=== PATIENT | male | born 1955 | race Caucasian/White ===

== ENCOUNTER 2017-05-01 08:01 | Emergency (ER) | payer OTHER, SELFPAY ==
[2017-05-01 08:02] VITALS: BP 125/78; PULSE 89; RESP 24; TEMP 36.8; O2SAT 97; BMI 28.3
--- NOTE | 2017-05-01 08:24 | RAD_ITS ---
STUDY: X-RAY CHEST REASON FOR EXAM: Male, 61 years old. Cough TECHNIQUE: Single AP portable view of the chest. COMPARISON: 11/20/2015. 02/19/2013. FINDINGS: The lungs are clear and hyperexpanded. There is no demonstrated pleural abnormality. Normal size heart. Normal mediastinum and rolan. Normal visualized pulmonary arteries. Normal visualized aortic arch and descending thoracic aorta. Normal visualized thoracic spine. There is degenerative osteoarthritis of the bilateral shoulders. There is no demonstrated abnormality of the visualized soft tissue structures of the upper abdomen. RAD/Chest 1 View (Portable) IMPRESSION: Stable mild hyperinflation. No acute cardiopulmonary disease. No significant interval change. Electronically Signed: Jenna Hernandez MD at 8:38 EDT , Service support ,
--- NOTE | 2017-05-01 08:27 | ED.VISSUMM ---
- ER Visit Summary Date of Service: 05/01/17 Chief Complaint: Flu History of Present Illness: The patient is a 61 M with flulike symptoms. He describes these as nausea, vomiting, and dehydration. He also has a dry cough. He is worried he might be getting dehydrated. He had this for 4 days. It is gradually getting worse. He did have some fevers, but none today. He has a history of high blood pressure, high cholesterol, and COPD. He denies any chest pain or abdominal pain. Denies any urinary symptoms. Physical Examination: Afebrile and vital signs unremarkable. Alert and oriented. No acute distress. Mucous membranes slightly dry. Heart regular. Lungs clear. Abdomen soft and nontender. No distention or masses. Skin appears normal in color. Test Results: We will check labs, chest x-ray, influenza testing. Emergency Department Course and Treatment: Patient had Zofran and fluids while awaiting results. Patient felt better after fluids and Zofran. No further vomiting. No new symptoms. His exam showed a soft and nontender abdomen with no distention, guarding, or rebound. CBC unremarkable except for platelets of 134. Potassium 3.4 and glucose 127. Hepatic panel and lipase normal. Patient continued to deny urinary symptoms. Denied any chest pain or shortness of breath. He did have a dry cough. His chest x-ray was stable with no acute abnormalities. This is likely a viral syndrome. I believe the patient is appropriate for outpatient follow-up. He should return right away for any new or worsening symptoms, otherwise call for follow-up with his doctor tomorrow. Prescription for Zofran. Stay hydrated. Soft diet. Return for new or worsening symptoms. Treatment Plan: As above Disposition: Discharged Impression: 1. Nausea and vomiting This note was generated with [employer] display technologiesation software. It may contain incorrect words, spelling, and punctuation that were not noted in review of the chart prior to signing ED Disposition - Plan for ED Patient: Chief Complaint: Weakness Referrals: Mak Tejada MD [Primary Care Provider] -
[2017-05-01] MEDS: 0.9% Normal Saline 1,000 ML 1000 ML IV (08:28)
[2017-05-01] MEDS: Ondansetron 4 MG/2 ML Vial IV (08:28)
[2017-05-01 08:33] LABS: Absolute Lymphocyte Count 1.07 X10^3/ul (0.83-4.51); Absolute Neutrophil Count 3.7 X10^3/uL (2.0-7.7); Basophil# 0.02 X10^3/uL; Basophil% 0.3 % (0-1); Differential Indicated SCAN CRITERIA MET; Eosinophil# 0.04 X10^3/uL; Eosinophils% 0.6 % (0-5); Hematocrit 45.1 % (40-54); Hemoglobin 14.5 g/dl (13.0-16.5); Lymphocyte # 1.07 X10^3/ul (4.0); Lymphocyte % 16.8 % (19-41); Mean Corp Hgb Conc 32.2 g/gl (32-36); Mean Corpuscular Hgb 28.9 pg (27.0-32.0); Mean Platelet Vol. 11.8 fl (6.2-12.0); Monocyte# 1.53 X10^3/uL; Neutrophil # 3.69 X10^3/uL (2.7-7.7); POSITIVE COUNT NO; POSITIVE DIFFERENTIAL YES; POSITIVE MORPHOLOGY NO; Platelet Count 134 K/mm3 (150-450); RBC Distribution Width CV 14.1 % (11.6-14.6); RBC Distribution Width SD 46.5 fl (35.1-43.9); Red Blood Count 5.01 M/mm3 (4.6-6.2); White Blood Count 6.4 K/mm3 (4.4-11.0)
[2017-05-01 08:46] LABS: ALB/GLOB Ratio 0.8 RATIO (0.9-2.4); AST(SGOT) 15 U/L (15-37); Alanine Aminotransfer ALT/SGPT 17 U/L (16-61); Albumin, Serum 3.3 g/dL (3.2-5.0); Alkaline Phosphatase 97 U/L (45-117); Anion Gap 8 (5-15); BUN 16 mg/dL (7-18); BUN/Creat Ratio 14.2 RATIO (10-20); Calcium,Total 8.2 mg/dL (8.5-10.1); Chloride 102 mmol/L (98-107); Creatinine, Serum 1.13 mg/dL (0.70-1.30); EST Glomerular Filtration Rate 70 mL/min (>60); Est Glom Filt Rate - Afr Amer 84 mL/min (>60); Estimated Creatinine Clearance 65.58 ml/min; Globulin 4.3 g/dL (2.2-4.2); Glucose 127 mg/dL (74-106); Lipase 140 U/L (73-393); Potassium 3.4 mmol/L (3.5-5.1); Protein, Total 7.6 g/dL (6.4-8.2); Sodium Level 137 mmol/L (136-145)
--- NOTE | 2017-05-01 09:03 | ED.DEP ---
ED Disposition - Plan for ED Patient: Chief Complaint: Weakness Instructions: ED Nausea Vomiting Prescriptions: Ondansetron [Zofran Odt] 4 mg PO Q8H PRN PRN #10 tab PRN Reason: Nausea Referrals: Mak Tejada MD [Primary Care Provider] -
[2017-05-01 09:09] VITALS: BP 129/68; PULSE 94; RESP 22; O2SAT 97
--- NOTE | 2017-05-01 09:10 | ED.RN ---
THIS NURSE REVIEWED D/C INSTRUCTIONS WITH PT. PT VERBALIZED UNDERSTANDING OF INSTRUCTIONS. IV D/C. IV CATHETER INTACT. PT TOLERATED WELL. PT DENIES FURTHER NEEDS OR QUESTIONS AT THIS TIME.
== END 2017-05-01 09:11 | disposition home or self-care (01) ==
PROVIDERS: Emergency Provider Emergency Medicine; Family Provider Family Medicine; PCP Family Medicine
DX: R11.2 Nausea with vomiting, unspecified (principal); R05 Cough; J44.9 Chronic obstructive pulmonary disease, unspecified; I10 Essential (primary) hypertension; E78.00 Pure hypercholesterolemia, unspecified; Z79.899 Other long term (current) drug therapy
CPT/HCPCS: 71045; 80053; 83690; 85025; 96361; 96374; 99285; J7030; A4216; J2405

== ENCOUNTER 2017-05-27 15:17 | Emergency (ER) | payer OTHER, SELFPAY ==
[2017-05-27 15:18] VITALS: BP 132/62; PULSE 99; RESP 20; TEMP 37.6; O2SAT 95; BMI 27.1
--- NOTE | 2017-05-27 15:55 | EKG12_ITS ---
Test Reason : DIZZINESS/BACKPAIN Blood Pressure : / mmHG Vent. Rate : 083 BPM Atrial Rate : 083 BPM P-R Int : 178 ms QRS Dur : 084 ms QT Int : 384 ms P-R-T Axes : 038 012 048 degrees QTc Int : 451 ms Normal sinus rhythm Normal ECG Confirmed by ROXANA CRUZ, EMANUEL ([id number]), electronic news gathering editor NINI GOULD ([id number]) on 05/30/2017 2:21:03 PM Referred By: FRANCES/SHA Confirmed By:EMANUEL SCHMIDT MD
--- NOTE | 2017-05-27 15:56 | ED.VISSUMM ---
- ER Visit Summary Date of Service: 05/27/17 Chief Complaint: Lightheaded symptoms History of Present Illness: The patient is a 61 M came from work with transient mid upper back pain at 2 PM while standing at work. States became lightheaded. No syncopal episodes. No chest pains or shortness of breath. No recent nausea or vomiting. Normal stools. No urinary symptoms. No recent illness. States had similar symptoms in the past. Currently denies any back pain or any symptoms. He was sent here for work for evaluation. Denies tobacco history. Physical Examination: General: Alert and oriented ?3, no acute distress HEENT: Normocephalic, atraumatic. Moist mucosa membranes Neck: supple, nontender. Cardiovascular: Regular rate and rhythm, no murmurs Respiratory: Normal breath sounds, symmetric, no distress Abdomen: Soft, nontender, nondistended Extremities: Nontender, no edema, pulses intact ?4 Neuro: no focal neurological deficits. Test Results: EKG: Sinus rate of 83, no ST or T-wave changes. QTc 451. Hemoglobin 12.6. Potassium 3.7. Chest x-ray degenerative back disease. Emergency Department Course and Treatment: Patient transient near syncopal symptoms. Started with upper back pain. That has resolved. EKG normal. Labs normal. Given bolus of fluids. X-ray of chest negative for lung disease. No degenerative disease of the back. Patient does have history of arthritis of the back. Since likely pain induced near syncope from his back pain. No chest pains. He is able to ambulate in the ED with no difficulties. Discussed using Tylenol as needed for pain control. Follow with his PCP for reevaluation. All questions are answered. Treatment Plan: [] Disposition: Discharge Impression: 1. Near syncope 2. Degenerative back disease This note was generated with E[employer]horia [employer]ation software. It may contain incorrect words, spelling, and punctuation that were not noted in review of the chart prior to signing ED Disposition - Plan for ED Patient: Disposition: Against Medical Advice Chief Complaint: Dizziness Diagnosis: Near syncope, Degenerative disc disease, thoracic Referrals: Mak Tejada MD [Primary Care Provider] -
--- NOTE | 2017-05-27 16:00 | RAD_ITS ---
STUDY: X-RAY CHEST REASON FOR EXAM: Male, 61 years old. COPD dizziness TECHNIQUE: PA and lateral views of the chest. COMPARISON: May 01, 2017 chest x-ray FINDINGS: The lungs are clear and expanded. There is no demonstrated pleural abnormality. Normal size heart. Normal mediastinum and rolan. Normal visualized pulmonary arteries. Normal visualized aortic arch and descending thoracic aorta. There are diffuse degenerative changes of the visualized thoracic spine. Normal visualized ribs, clavicles, and shoulders. There is no demonstrated abnormality of the visualized soft tissue structures of the upper abdomen. RAD/Chest PA and Lateral IMPRESSION: Degenerative changes, as described above. No demonstrated acute cardiopulmonary process. Electronically Signed: Elena Mccall MD at 16:20 EDT Tel , Service support ,
[2017-05-27 16:08] LABS: Absolute Neutrophil Count 5.9 X10^3/uL (2.0-7.7); Basophil# 0.01 X10^3/uL; Basophil% 0.1 % (0-1); Eosinophil# 0.11 X10^3/uL; Eosinophils% 1.3 % (0-5); Hematocrit 39.3 % (40-54); Hemoglobin 12.6 g/dl (13.0-16.5); Lymphocyte % 19.4 % (19-41); Mean Corp Hgb Conc 32.1 g/gl (32-36); Mean Corpuscular Hgb 28.5 pg (27.0-32.0); Mean Corpuscular Volume 88.9 fL (80-94); Mean Platelet Vol. 11.7 fl (6.2-12.0); Monocyte% 11.4 % (0-10); Neutrophil # 5.91 X10^3/uL (2.7-7.7); Neutrophil % 67.5 % (47-70); Platelet Count 167 K/mm3 (150-450); RBC Distribution Width CV 14.3 % (11.6-14.6); RBC Distribution Width SD 46.7 fl (35.1-43.9); Red Blood Count 4.42 M/mm3 (4.6-6.2); White Blood Count 8.8 K/mm3 (4.4-11.0)
[2017-05-27 16:20] LABS: Anion Gap 8 (5-15); BUN 23 mg/dL (7-18); BUN/Creat Ratio 18.9 RATIO (10-20); Calcium,Total 7.9 mg/dL (8.5-10.1); Chloride 104 mmol/L (98-107); Creatinine, Serum 1.22 mg/dL (0.70-1.30); EST Glomerular Filtration Rate 64 mL/min (>60); Est Glom Filt Rate - Afr Amer 77 mL/min (>60); Estimated Creatinine Clearance 62.78 ml/min; Glucose 100 mg/dL (74-106); Potassium 3.7 mmol/L (3.5-5.1); Sodium Level 137 mmol/L (136-145)
[2017-05-27 16:24] LABS: POSITIVE COUNT NO; POSITIVE DIFFERENTIAL NO; POSITIVE MORPHOLOGY NO
--- NOTE | 2017-05-28 01:07 | ED.RN ---
see patient down time charting from [id number]
== END 2017-05-27 17:57 | disposition left against medical advice (07) ==
LOC: ED 15:53
PROVIDERS: Emergency Provider Emergency Medicine; Family Provider Family Medicine; PCP Family Medicine
DX: R55 Syncope and collapse (principal); M51.34 Other intervertebral disc degeneration, thoracic region
CPT/HCPCS: 71046; 80048; 85025; 93005; 99281; J7040; A4216

== ENCOUNTER → 2019-08-16 15:45 | Outpatient (CLI) | payer OTHER, SELFPAY ==
[2018-04-13 16:02] VITALS: BMI 27.1
[2019-08-16 17:32] LABS: Hematocrit 42.9 % (40-54); Hemoglobin 13.4 g/dL (13.0-16.5); Mean Corp Hgb Conc 31.2 g/dL (32-36); Mean Corpuscular Hgb 28.5 pg (27.0-32.0); Mean Corpuscular Volume 91.1 fL (80-94); Mean Platelet Vol. 13.4 fl (6.2-12.0); Platelet Count 160 K/mm3 (150-450); RBC Distribution Width CV 14.6 % (11.6-14.6); RBC Distribution Width SD 48.6 fl (35.1-43.9); Red Blood Count 4.71 M/mm3 (4.6-6.2); White Blood Count 10.1 K/mm3 (4.4-11.0)
[2019-08-16 17:46] LABS: AST(SGOT) 17 U/L (15-37); Alanine Aminotransfer ALT/SGPT 23 U/L (16-61); Albumin, Serum 3.9 g/dL (3.2-5.0); Alkaline Phosphatase 99 U/L (45-117); Anion Gap 8 (5-15); BUN 25 mg/dL (7-18); BUN/Creat Ratio 18.4 RATIO (10-20); Chloride 106 mmol/L (98-107); Cholesterol 170 mg/dL (200); Creatinine, Serum 1.36 mg/dL (0.70-1.30); EST Glomerular Filtration Rate 56 mL/min (>60); Est Glom Filt Rate - Afr Amer 68 mL/min (>60); Globulin 3.8 g/dL (2.2-4.2); Glucose 84 mg/dL (74-106); High Density Lipoprotein 39 mg/dL; Potassium 4.3 mmol/L (3.5-5.1); Protein, Total 7.7 g/dL (6.4-8.2); Sodium Level 137 mmol/L (136-145); Triglycerides 106 mg/dL; Very Low Density Lipoprotein 21 mg/dL (5-40)
[2019-08-16 17:59] LABS: Microalbumin,Random Urine 49.6 mg/L (NO RANGE EST.); Microalbumin:Creatinine Ratio 9.6 mg/g CRE (<30 mg/g CRE)
== END ==
PROVIDERS: PCP Family Medicine; Referring Provider Family Medicine; Visit Provider Family Medicine
DX: J44.9 Chronic obstructive pulmonary disease, unspecified (principal); I10 Essential (primary) hypertension; E78.00 Pure hypercholesterolemia, unspecified
CPT/HCPCS: 36415; 80053; 80061; 82043; 82570; 85027

== ENCOUNTER → 2020-06-14 07:00 | Outpatient (CLI) | payer OTHER, SELFPAY ==
[2018-04-13 16:02] VITALS: BMI 27.1
[2020-06-14 08:48] LABS: Absolute Lymphocyte Count 2.54 X10^3/uL (0.83-4.51); Absolute Neutrophil Count 3.2 X10^3/uL (2.0-7.7); Basophil# 0.05 X10^3/uL; Basophil% 0.7 % (0-1); Eosinophil# 0.39 X10^3/uL; Eosinophils% 5.6 % (0-5); Hematocrit 42.8 % (40-54); Hemoglobin 13.2 g/dL (13.0-16.5); Lymphocyte # 2.54 X10^3/ul (0.83-4.51); Lymphocyte % 36.3 % (19-41); Mean Corp Hgb Conc 30.8 g/dL (32-36); Mean Corpuscular Hgb 28.1 pg (27.0-32.0); Mean Corpuscular Volume 91.3 fL (80-94); Mean Platelet Vol. 13.2 fl (6.2-12.0); Monocyte# 0.74 X10^3/uL; Monocyte% 10.6 % (0-10); NRBC Flagged by Analyzer 0 % (0-5); Neutrophil # 3.24 X10^3/uL (2.7-7.7); Neutrophil % 46.2 % (47-70); Platelet Count 138 K/mm3 (150-450); RBC Distribution Width CV 14.3 % (11.6-14.6); RBC Distribution Width SD 47.8 fl (35.1-43.9); Red Blood Count 4.69 M/mm3 (4.6-6.2)
[2020-06-14 09:15] LABS: Microalbumin,Random Urine 6.6 mg/L (NO RANGE EST.); Microalbumin:Creatinine Ratio 7.1 mg/g CRE (<30 mg/g CRE)
[2020-06-14 09:35] LABS: AST(SGOT) 12 U/L (15-37); Alanine Aminotransfer ALT/SGPT 22 U/L (16-61); Albumin, Serum 3.5 g/dL (3.2-5.0); Alkaline Phosphatase 86 U/L (45-117); Anion Gap 5 (5-15); BUN 22 mg/dL (7-18); Calcium,Total 7.7 mg/dL (8.5-10.1); Chloride 106 mmol/L (98-107); Cholesterol 159 mg/dL (200); Creatinine, Serum 0.92 mg/dL (0.70-1.30); EST Glomerular Filtration Rate 88 mL/min (>60); Est Glom Filt Rate - Afr Amer 107 mL/min (>60); Globulin 3.4 g/dL (2.2-4.2); Glucose 87 mg/dL (74-106); High Density Lipoprotein 42 mg/dL; Potassium 4.4 mmol/L (3.5-5.1); Protein, Total 6.9 g/dL (6.4-8.2); Sodium Level 138 mmol/L (136-145); Triglycerides 58 mg/dL; Very Low Density Lipoprotein 12 mg/dL (5-40)
== END ==
PROVIDERS: PCP Family Medicine; Referring Provider Family Medicine; Visit Provider Family Medicine
DX: J44.9 Chronic obstructive pulmonary disease, unspecified (principal); I10 Essential (primary) hypertension; E78.00 Pure hypercholesterolemia, unspecified
CPT/HCPCS: 36415; 80053; 80061; 82043; 82570; 85025

== ENCOUNTER 2021-05-09 07:33 | Outpatient (CLI) | payer OTHER, SELFPAY ==
[2021-05-09 08:28] LABS: Absolute Lymphocyte Count 1.95 X10^3/uL (0.83-4.51); Absolute Neutrophil Count 3.7 X10^3/uL (2.0-7.7); Basophil# 0.05 X10^3/uL; Basophil% 0.8 % (0-1); Eosinophil# 0.33 X10^3/uL; Hematocrit 42.3 % (40-54); Hemoglobin 13.4 g/dL (13.0-16.5); Lymphocyte # 1.95 X10^3/ul (0.83-4.51); Lymphocyte % 29.5 % (19-41); Mean Corp Hgb Conc 31.7 g/dL (32-36); Mean Corpuscular Hgb 28.5 pg (27.0-32.0); Mean Corpuscular Volume 89.8 fL (80-94); Mean Platelet Vol. 12.8 fl (6.2-12.0); Monocyte# 0.58 X10^3/uL; Monocyte% 8.8 % (0-10); NRBC Flagged by Analyzer 0 % (0-5); Neutrophil # 3.67 X10^3/uL (2.7-7.7); Neutrophil % 55.6 % (47-70); Platelet Count 138 K/mm3 (150-450); RBC Distribution Width CV 14.6 % (11.6-14.6); RBC Distribution Width SD 48.2 fl (35.1-43.9); Red Blood Count 4.71 M/mm3 (4.6-6.2); White Blood Count 6.6 K/mm3 (4.4-11.0)
[2021-05-09 08:50] LABS: ALB/GLOB Ratio 0.9 RATIO (0.9-2.4); AST(SGOT) 17 U/L (15-37); Alanine Aminotransfer ALT/SGPT 24 U/L (16-61); Albumin, Serum 3.5 g/dL (3.2-5.0); Alkaline Phosphatase 90 U/L (45-117); Anion Gap 2 (5-15); BUN 16 mg/dL (7-18); BUN/Creat Ratio 17.5 RATIO (10-20); Calcium,Total 8.5 mg/dL (8.5-10.1); Chloride 109 mmol/L (98-107); Creatinine, Serum 0.91 mg/dL (0.70-1.30); EST Glomerular Filtration Rate 88 mL/min (>60); Est Glom Filt Rate - Afr Amer 106 mL/min (>60); Globulin 3.8 g/dL (2.2-4.2); Glucose 103 mg/dL (74-106); Magnesium 1.9 mg/dL (1.6-2.6); Potassium 4.1 mmol/L (3.5-5.1); Protein, Total 7.3 g/dL (6.4-8.2); Sodium Level 141 mmol/L (136-145)
[2021-05-09 09:43] LABS: Calcium, Urine (Random) < 5.0 mg/dL (Not Estab.)
[2021-05-11 08:46] LABS: Vitamin D,25 Hydroxy 19.4 ng/mL
== END 2021-05-09 23:59 | disposition home or self-care (01) ==
PROVIDERS: PCP Family Medicine; Referring Provider Family Medicine; Visit Provider Family Medicine
DX: E83.51 Hypocalcemia (principal); R42 Dizziness and giddiness
CPT/HCPCS: 80053; 82306; 82330; 82340; 83735; 83970; 85025

== ENCOUNTER → 2021-11-14 | Outpatient (CLI) | payer OTHER, SELFPAY ==
[2021-11-14 08:04] LABS: Anion Gap 6 (5-15); BUN 22 mg/dL (7-18); Calcium,Total 8.1 mg/dL (8.5-10.1); Chloride 108 mmol/L (98-107); Cholesterol 149 mg/dL (200); Creatinine, Serum 0.96 mg/dL (0.70-1.30); EST Glomerular Filtration Rate 83 mL/min (>60); Est Glom Filt Rate - Afr Amer 101 mL/min (>60); Glucose 101 mg/dL (74-106); High Density Lipoprotein 42 mg/dL; PSA,Total - Annual Screen 1.89 ng/mL (0.00-4.00); Potassium 4.2 mmol/L (3.5-5.1); Sodium Level 142 mmol/L (136-145); Triglycerides 67 mg/dL; Very Low Density Lipoprotein 13 mg/dL (5-40)
== END | disposition home or self-care (01) ==
LOC: LAB 07:14
PROVIDERS: PCP Family Medicine; Referring Provider Family Medicine; Visit Provider Family Medicine
DX: Z00.00 Encounter for general adult medical examination without abnormal findings (principal); I10 Essential (primary) hypertension; E78.00 Pure hypercholesterolemia, unspecified; Z12.5 Encounter for screening for malignant neoplasm of prostate
CPT/HCPCS: 36415; 80048; 80061; 84153; G0103

== ENCOUNTER → 2022-10-09 | Outpatient (CLI) | payer MEDICARE, SELFPAY ==
[2022-10-09 08:52] LABS: Absolute Lymphocyte Count 2.59 X10^3/uL (0.83-4.51); Basophil# 0.05 X10^3/uL; Basophil% 0.6 % (0-1); Eosinophil# 0.29 X10^3/uL; Eosinophils% 3.3 % (0-5); Hematocrit 44.5 % (40-54); Hemoglobin 14.2 g/dL (13.0-16.5); Lymphocyte # 2.59 X10^3/ul (0.83-4.51); Lymphocyte % 29.9 % (19-41); Mean Corp Hgb Conc 31.9 g/dL (32-36); Mean Corpuscular Hgb 28.9 pg (27.0-32.0); Mean Corpuscular Volume 90.4 fL (80-94); Mean Platelet Vol. 12.6 fl (6.2-12.0); Monocyte# 0.68 X10^3/uL; Monocyte% 7.9 % (0-10); NRBC Flagged by Analyzer 0 % (0-5); Neutrophil % 57.7 % (47-70); Platelet Count 147 K/mm3 (150-450); RBC Distribution Width CV 14.9 % (11.6-14.6); RBC Distribution Width SD 49.5 fl (35.1-43.9); Red Blood Count 4.92 M/mm3 (4.6-6.2); White Blood Count 8.7 K/mm3 (4.4-11.0)
[2022-10-09 09:11] LABS: ALB/GLOB Ratio 1.1 RATIO (0.9-2.4); AST(SGOT) 12 U/L (15-37); Alanine Aminotransfer ALT/SGPT 21 U/L (16-61); Albumin, Serum 3.7 g/dL (3.2-5.0); Alkaline Phosphatase 101 U/L (45-117); Anion Gap 1 (5-15); BUN 18 mg/dL (7-18); BUN/Creat Ratio 18.5 RATIO (10-20); Calcium,Total 8.4 mg/dL (8.5-10.1); Chloride 106 mmol/L (98-107); Creatinine, Serum 0.97 mg/dL (0.70-1.30); EST Glomerular Filtration Rate 82 mL/min (>60); Est Glom Filt Rate - Afr Amer 99 mL/min (>60); Globulin 3.4 g/dL (2.2-4.2); Glucose 98 mg/dL (74-106); Magnesium 2.3 mg/dL (1.6-2.6); Potassium 4.3 mmol/L (3.5-5.1); Protein, Total 7.1 g/dL (6.4-8.2); Sodium Level 136 mmol/L (136-145)
[2022-10-09 09:20] LABS: Microalbumin,Random Urine 20.3 mg/L (NO RANGE EST.)
== END | disposition home or self-care (01) ==
LOC: MTLAB 08:14 → LAB 08:16
PROVIDERS: PCP Family Medicine; Referring Provider Family Medicine; Visit Provider Family Medicine
DX: E83.51 Hypocalcemia (principal); J44.9 Chronic obstructive pulmonary disease, unspecified; I10 Essential (primary) hypertension
CPT/HCPCS: 36415; 80053; 82043; 82570; 83735; 85025

== ENCOUNTER 2023-02-03 18:16 | Emergency (ER) | payer MEDICARE, SELFPAY ==
[2023-02-03 18:16] VITALS: BP 159/78; PULSE 92; RESP 16; TEMP 35.6; O2SAT 98; BMI 30.4
--- OUTSIDE RECORDS SUMMARY | 2023-02-03 20:15 | XMS RPT_ITS | CCD ---
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 Designer Name Role Phone Laura Feliciano Unavailable Unavailable Laura Feliciano Unavailable Unavailable Ronal Pinon Unavailable Unavailable Medications Completed/Discontinued Medications Medication Drug Class(es) Dates Sig (Normalized) Sig (Original) atenolol 50 mg oral tablet (3 sources) beta-Adrenergic Nati Start: 6 take 1 tablet by mouth once daily ATENOLOL 50 MG TABS One tablet by mouth daily ATENOLOL [id number] aPl Brooks MD ergocalciferol 71162 unt oral tablet (3 sources) Provitamin D2 Compound Start: 6 take 1 tablet by mouth every week VITAMIN D (ERGOCALCIFEROL) 89526 UNIT CAPS One tablet by mouth weekly ERGOCALCIFEROL [id number] Tena Rivers RN fluticasone propionate 0.05 mg/actuat metered dose nasal spray (5 sources) Corticosteroid Start: 7 End: 7 FLUTICASONE PROPIONATE 50 MCG/ACT SUSP (0.05mg/inh) 1 spray each nostril once a day FLUTICASONE PROPIONATE [id number] Pal Brooks MD hydroCHLOROthiazide 25 mg / spironolactone 25 mg oral tablet (6 sources) Thiazide Diuretic, Aldosterone Antagonist Start: 6 End: 7 take 1-0.5 tablets by mouth once daily SPIRONOLACTONE-HCT Z 25-25 MG TABS One half to One tablet by mouth daily SPIRONOLACTONE-HCT Z [id number] Tena Rivers RN magnesium oxide 400 mg oral tablet (6 sources) Start: 7 End: 7 take 1 tablet by mouth once daily MAGNESIUM OXIDE 400 MG TABS One tablet by mouth daily MAGNESIUM OXIDE [id number] Pal Brooks MD meclizine hydrochloride 25 mg oral tablet (3 sources) Antiemetic Start: 6 take 1 tablet by mouth three times daily as needed MECLIZINE HCL 25 MG TABS One tablet by mouth three times daily As needed MECLIZINE HCL [id number] Tena Rivers RN montelukast 10 mg oral tablet (5 sources) Leukotriene Receptor Antagonist Start: 6 End: 7 take 1 tablet by mouth once daily MONTELUKAST SODIUM 10 MG TABS One tablet by mouth daily MONTELUKAST SODIUM [id number] Tena Rivers RN TIOTROPIUM BROMIDE-OLODATEROL (3 sources) Anticholinergic, beta2-Adrenergic Agonist Start: 6 STIOLTO RESPIMAT 2.5-2.5 MCG/ACT AERS As directed TIOTROPIUM BROMIDE-OLODATEROL [id number] Tena Rivers RN pravastatin sodium 80 mg oral tablet (3 sources) HMG-CoA Reductase Inhibitor Start: 6 take 1 tablet by mouth once daily PRAVASTATIN SODIUM 80 MG TABS One tablet by mouth daily PRAVASTATIN SODIUM [id number] Tena Rivers RN Problems Active Problems Problem Classification Problem Date Documented Da te Episodic/Chronic Cardiac dysrhythmias (3 sources) Sinus bradycardia; Translations: [Bradycardia, unspecified] Onset: 02-05-2016 02-05-2016 Chronic Chronic obstructive pulmonary disease and bronchiectasis (3 sources) Chronic obstructive lung disease; Translations: [Chronic obstructive pulmonary disease, unspecified] Onset: 02-05-2016 02-05-2016 Chronic Disorders of lipid metabolism (3 sources) Hyperlipidemia; Translations: [Hyperlipidemia, unspecified] Onset: 02-05-2016 02-05-2016 Chronic Essential hypertension (3 sources) Hypertensive disorder; Translations: [Essential (primary) hypertension] Onset: 02-05-2016 02-05-2016 Chronic [place]-; endo-; and myocarditis; cardiomyopathy (3 sources) Cardiomyopathy; Translations: [Cardiomyopathy, unspecified] Onset: 04-15-2016 04-15-2016 Chronic Past or Other Problems Problem Classification Problem Date Documented Da te Episodic/Chronic Conditions associated with dizziness or vertigo (3 sources) Dizziness; Translations: [Dizziness and giddiness] Onset: 02-05-2016 02-05-2016 Episodic Results Test Name Value Interpretation Reference Range Facil ity Vital Signs Date Time Vital Sign Value Performing Clinician Lelo gamez 10-19-2016 12:04-0400 BMI (Body Mass Index) 27.21 kg/m2 Laura Gant [facility] Work Phone: 10-19-2016 12:04-0400 Weight 81.19 kg Laura Feliciano [facility] Work Phone: 04-15-2016 16:37-0500 BMI (Body Mass Index) 28.26 kg/m2 Ronal [employer] [facility] Work Phone: 04-15-2016 16:37-0500 BP Diastolic 64 mm[Hg] Yerbab[employer] DeFinis [facility] Work Phone: 04-15-2016 16:37-0500 BP Systolic 120 mm[Hg] Ronal DeFinis [facility] Work Phone: 04-15-2016 16:37-0500 Height 172.72 cm RIISnet DeFinis [facility] Work Phone: 04-15-2016 16:37-0500 Pulse (Heart Rate) 60 /min [employer]net DeFinis [facility] Work Phone: 04-15-2016 16:37-0500 Respiratory Rate 20 /min Ronal DeFinis [facility] Work Phone: 04-15-2016 16:37-0500 Weight 84.32 kg [employer]net DeFinis [facility] Work Phone: 02-13-2016 15:20-0500 BP Diastolic 72 mm[Hg] RIISnet DeFinis [facility] Work Phone: 02-13-2016 15:20-0500 BP Systolic 130 mm[Hg] [employer] DeFinis [facility] Work Phone: 02-13-2016 15:20-0500 BSA (Body Surface Area) 1.98 m2 Ronal DeFinis [facility] Work Phone: Procedures Date Procedure Procedure Detail Performing Clinician Start: 10-19-2016 End: 10-19-2016 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 Tena Atkinson PA-C Work Phone: Start: 10-19-2016 End: 10-19-2016 Follow Up Appt 6 months Tena drew PA-C Work Phone: Start: 04-15-2016 End: 04-15-2016 Follow Up Appt 6 months Verónica Jarrell Start: 04-15-2016 End: 04-15-2016 JOSÉ Brooks MD Start: 02-13-2016 End: 03-25-2016 Echocardiography Pal Brooks MD Start: 02-13-2016 End: 02-13-2016 Follow Up Appt 6 weeks Pal Brooks MD Start: 02-13-2016 End: 02-13-2016 JOSÉ Brooks MD Plan of Treatment Date Care Activity Detail Author Start: 04-21-2017 End: 04-21-2017 Appointment Appointment [facility] Work Phone: Start: 10-19-2016 End: 10-19-2016 Appointment Appointment [facility] Work Phone: Start: 10-19-2016 End: 10-19-2016 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 [facility] Work Phone: Start: 10-19-2016 End: 10-19-2016 Follow Up Appt 6 months Follow Up Appt 6 months [facility] Work Phone: Start: 08-17-2016 End: 08-17-2016 Appointment Appointment [facility] Work Phone: Start: 04-15-2016 End: 04-15-2016 Follow Up Appt 6 months Follow Up Appt 6 months [facility] Work Phone: Start: 04-15-2016 End: 04-15-2016 MMM MMM [facility] Work Phone: Start: 02-13-2016 End: 02-13-2016 Echocardiography Echocardiogram (complete) [facility] Work Phone: Start: 02-13-2016 End: 02-13-2016 Follow Up Appt 6 weeks Follow Up Appt 6 weeks [facility] Work Phone: Start: 02-13-2016 End: 02-13-2016 MMM MMM [facility] Work Phone: Additional Source Comments FOR RECORDS PERTAINING TO PATIENTS WHO ARE OR HAVE BEEN ENROLLED IN A CHEMICAL DEPENDENCY/SUBSTANCEABUSE PROGRAM, SOME INFORMATION MAY BE OMITTED. This clinical summary was aggregated from multiple sources. Caution should be exercised in using it in the provision of clinical care. This summary normalizes information from multiple sources, and as a consequence, information in this document may materially change the coding, format and clinical context of patient data. In addition, data may be omitted in some cases. CLINICAL DECISIONS SHOULD BE BASED ON THE PRIMARY CLINICAL RECORDS. [employer] provides no warranty or guarantee of the accuracy or completeness of information in this document.
--- NOTE | 2023-02-03 20:22 | EDS_ITS ---
HPI History of Present Illness Chief Complaint: Dizziness Informant: patient Onset/Context/Timing Onset: Today and Hours Context: Gradual Onset Timing: Intermittent Current Severity: Mild Maximum Severity: Mild Narrative Narrative: 67-year-old old male history of COPD. States that he feels lightheaded and a little dizzy. No trouble using his arms or legs. No headache. No head trauma. Has headache. Said he had this 1 other time when he had a wax impaction in his ear. No prior stroke nor strokelike symptoms otherwise. He said he walks daily has had no trouble walking. No trouble using his arms or legs. No weakness or numbness. Prior similar symptoms: Yes Recent Illness/Hospitalization: No PFSH PFSH Medical History (Updated 02/03/23 @ 20:[address] Darin Kelly MD) Dizziness Hypertension Home Medications ergocalciferol (vitamin D2) 1,250 mcg (50,000 unit) capsule 50,000 unit PO Q7D 08/13/15 [History Last Taken 05/27/17] pravastatin 80 mg tablet 80 mg PO QHS 08/13/15 [History Last Taken 05/27/17] meclizine 25 mg tablet 25 mg PO TID PRN PRN Vertigo #20 tabs 05/14/16 [Rx Last Taken 05/27/17] albuterol sulfate 90 mcg/actuation aerosol inhaler 1 - 2 puff inhalation Q6H PRN PRN Sob &/Or Wheezing 05/01/17 [History Last Taken 05/27/17] lisinopril 5 mg tablet 5 mg PO QDAY #90 tabs 09/15/21 [Rx Last Taken Unknown] Allergy/AdvReac Type Severity Reaction Status Date / Time No Known Allergies Allergy Verified 02/03/23 18:18 Family History Father , 80+ of CVA CVA (cerebral vascular accident) Mother , 69 Breast Cancer Breast cancer Sister , 60+ Cancer Brother Sudden cardiac Drug abuse Social History Smoking Status: Never smoker alcohol intake: never ROS ROS ED ROS Narrative Lightheaded and dizzy. Denies recent illness. Review of Systems ROS Unobtainable: Denies due to encephalopathy Constitutional Constitutional ED: Denies chills or fever(s) Eyes Eyes: Denies blurry vision ENT ENT ED: Denies ear pain Cardiovascular Cardiovascular: Denies chest pain Respiratory/Chest Respiratory/Chest: Denies cough or dyspnea Gastrointestinal Gastrointestinal: Denies abdominal pain Genitourinary Genitourinary ED: Denies dysuria Musculoskeletal Musculoskeletal: Denies arthralgias or back pain Integumentary Denies abscess or Abrasions Neurologic Neurologic: Denies headache(s) Psychiatric Psychiatric: Denies anxiety or depression Endocrine Endocrinology: Denies cold intolerance Hematologic/Lymphatic Hematologic/Lymphatic: Reports none Allergic/Immunologic Allergic/Immunologic ED: Denies mouth swelling, tongue swelling or urticaria EXAM Physical Exam Narrative Exam Narrative: Well-appearing 67-year-old male. Vital signs stable afebrile. Pulse ox 98% on room air no hypoxia. H EENT exam unremarkable except left ear canal has a significant mount of wax. Right has mild wax but he can see the TM. Posterior pharynx normal. No head or facial trauma. Pupils round react light. No facial droop. Neck nontender no lymphadenopathy. Lungs clear to auscultation. Heart regular rhythm rate about 90 no murmur. Chest wall and ribs nontender. Abdomen soft nontender. Moving all 4 extremities. 5 out of 5 superintendent overhead distribution strength. Dorsi plantarflexion intact. Finger-nose [id number] within normal limits. Neurologic exam normal. NIH 0. Benign exam. Const Vital Signs: 02/03/23 18:16 02/03/23 19:16 Temperature 96.0 F L Temperature Source Temporal Pulse Rate 92 Respiratory Rate 16 Respiratory Effort Normal Non-Labored Respiratory Pattern Normal Blood Pressure 159/78 H Blood Pressure Mean 105 Pulse Ox 98 Oxygen Delivery Method Room Air Positive well nourished and well developed; Negative for obese, cachectic, contractures or unkempt General Appearance ED: well developed and NAD; Negative for unkempt, cachectic, contractures, cyanotic, diaphoretic or pallor Nutritional Appearance: Negative for cachectic or obese HEENT Reports moist mucous membranes Negative for trauma or tenderness Eyes PERRL and EOMs intact bilaterally General Eye ED: Negative for pale conjunctiva or scleral icterus Neck no lymphadenopathy, supple and no JVD General: Negative for tenderness Lymph Lymphatic: Negative for other Chest Wall inspection of chest normal and palpation of chest normal Chest: Negative for other Resp normal respiratory effort and clear to auscultation bilaterally Effort and Inspection: Negative for retractions Auscultation: Negative for rales, rhonchi or wheezes Cardio regular rate, regular rhythm, S1 normal heart sound, S2 normal heart sound and n o murmurs Palpation: Negative for palpable S3 or palpable S4 Rate: Negative for bradycardia or tachycardic GI normal to inspection, nondistended, normoactive bowel sounds, non-tender, non- distended and no masses; Negative for hepatosplenomegaly Inspection: Negative for abdominal distention Auscultation: normoactive bowel sounds Palpation: soft and mass; Negative for tender, guarding or splenomegaly Back/Spine no CVA tenderness General Back: Negative for CVA tenderness or other Cervical Spine: Negative for cervical spine tenderness Thoracic Spine / Upper Back: Negative for thoracic spinal tenderness Lumbar Spine / Lower Back: Negative for lumbar spinal tenderness Extremity normal to inspection General Extremety ED: Negative for edema or tenderness General Extremity: Negative for edema Neuro oriented x3 and CN's II-XII intact bilaterally Sensorium / Orientation: alert; Negative for orientation impaired, lethargic or stuporous Motor Exam: strength 5/5 throughout Psych mental status grossly normal Appearance: Negative for unkempt Attitude: No agitated Mood & Affect: Negative for depressed, anxious or tearful Skin no rashes or lesions noted, no wounds and skin turgor normal General Skin Exam: elasticity normal; Negative for jaundice or pallor Lesions: No lesion noted Rashes: No rashes noted Trauma: Negative for abrasion Wounds: Negative for wounds noted MDM MDM MDM Narrative Medical decision making narrative: Well-appearing 67-year-old male. Normal exam. No recent illness. He has a cerumen impaction on the left which she has had before. Debrox and irrigate his left ear and reevaluating. Patient has a completely normal neurologic exam. I do not think he needs any labs or imaging of his brain excetra. Discharge Plan Triage Chief Complaint: Dizziness ED Provider: Darin Kelly Dx/Rx/DC Orders Clinical Impression: Impacted cerumen Instructions: Impacted Earwax Prescriptions: No Action pravastatin 80 MG tablet 80 mg PO QHS Patient Comments: TAKE 1 TABLET BY MOUTH AT BEDTIME ergocalciferol (vitamin D2) 50,000 UNIT capsule 50,000 unit PO Q7D meclizine 25 MG tablet 25 mg PO TID PRN PRN (Reason: Vertigo) Qty: 20 0RF albuterol sulfate 1 INHALER inhaler 1 - 2 puff Inhalation Q6H PRN PRN (Reason: Sob &/Or Wheezing) lisinopril 5 mg tablet 5 mg PO QDAY Qty: 90 3RF Primary Care Provider: Mak Tejada Referrals: Mak Tejada MD [Primary Care Provider] - As Needed
[2023-02-03] MEDS: Carbamide Peroxide 15 ML Bottle 5 DRP OTIC (20:49)
[2023-02-03 21:45] VITALS: PULSE 72; RESP 16; O2SAT 98
== END 2023-02-03 21:45 | disposition home or self-care (01) ==
PROVIDERS: Emergency Provider Emergency Medicine; PCP Family Medicine; Visit Provider Emergency Medicine
DX: R42 Dizziness and giddiness (principal); J44.9 Chronic obstructive pulmonary disease, unspecified; I10 Essential (primary) hypertension; Z79.899 Other long term (current) drug therapy; H61.22 Impacted cerumen, left ear
CPT/HCPCS: 99283; A4216

== ENCOUNTER → 2023-10-28 | Outpatient (CLI) | payer MEDICARE, SELFPAY ==
[2023-10-28 11:06] LABS: Anion Gap 8 (5-15); BUN 14 mg/dL (7-18); BUN/Creat Ratio 13.1 RATIO (10-20); Chloride 107 mmol/L (98-107); Creatinine, Serum 1.07 mg/dL (0.70-1.30); EST Glomerular Filtration Rate 73 mL/min (>60); Est Glom Filt Rate - Afr Amer 88 mL/min (>60); Glucose 103 mg/dL (74-106); Potassium 4.2 mmol/L (3.5-5.1); Sodium Level 140 mmol/L (136-145)
== END | disposition home or self-care (01) ==
LOC: MFPLAB 09:06
PROVIDERS: PCP Family Medicine; Visit Provider Family Medicine
DX: I10 Essential (primary) hypertension (principal)
CPT/HCPCS: 36415; 80048

== ENCOUNTER → 2024-05-03 | Outpatient (CLI) | payer MEDICARE, SELFPAY ==
[2024-05-03 12:59] LABS: Anion Gap 10 (5-15); BUN 14 mg/dL (4-19); BUN/Creat Ratio 14.9 RATIO (10-20); Calcium,Total 7.9 mg/dL (7.6-11.0); Carbon Dioxide 25.2 mmol/L (21.0-32.0); Chloride 104 mmol/L (98-108); Creatinine, Serum 0.96 mg/dL (0.70-1.20); EST Glomerular Filtration Rate 86 (>60); Glucose 69 mg/dL (70-99); Potassium 4.4 mmol/L (3.3-5.1); Sodium Level 139 mmol/L (133-145)
== END | disposition home or self-care (01) ==
LOC: MTLAB 10:04
PROVIDERS: PCP Family Medicine; Referring Provider Family Medicine; Visit Provider Family Medicine
DX: I10 Essential (primary) hypertension (principal)
CPT/HCPCS: 36415; 80048

== ENCOUNTER 2024-06-28 18:27 | Emergency (ER) | payer MEDICARE, SELFPAY ==
[2024-06-28 18:28] VITALS: BP 137/78; PULSE 91; RESP 16; TEMP 36.6; O2SAT 95
--- NOTE | 2024-06-28 18:53 | EX.ED.DYSGE1 ---
HPI History of Present Illness Chief Complaint: Ear Problem Detail of Chief Complaint: Dizziness and ear problem Informant: patient Onset/Context/Timing Onset: Days Context: Sudden Onset Timing: Intermittent Quality: Dizziness which she defines as lightheadedness not vertigo. Location: Believes ears are occluded with cerumen Current Severity: Mild Maximum Severity: Moderate Worsened by: Upright position Relieved by: Nothing Associated Symptoms Associated Symptoms: None Narrative Narrative: Patient is a 68-year-old male. He has history of hypertension, vertigo, hypercholesterolemia and lung disease. Patient states when this is occurred in the past he has had cerumen impaction. He denies decreased hearing. He denies double vision, blurred vision loss of vision. No trouble with speech or swallowing. He states he has problems with with his balance as well as being lightheaded. He denies history of neuropathy. He denies dropping things. He denies cardiac or respiratory symptoms. Nuys GI symptoms. Nuys black or maroon-colored stool. Nuys hematuria. He is not on an antithrombotic or anticoagulant. He denies palpitations. Prior similar symptoms: Yes (Cerumen impaction) Recent Illness/Hospitalization: No [facility] Medical History (Updated 06/28/24 @ 22:[address] Danis Love MD) Hypertension Dizziness Home Medications ?Medication ?Instructions ?Recorded ?Last Taken ?Type ergocalciferol (vitamin D2) 1,250 50,000 unit PO Q7D 08/13/15 05/27/17 History mcg (50,000 unit) capsule pravastatin 80 mg tablet 80 mg PO QHS 08/13/15 05/27/17 History meclizine 25 mg tablet 25 mg PO TID PRN PRN Vertigo #20 05/14/16 05/27/17 Rx tabs albuterol sulfate 90 mcg/actuation 1 - 2 puff inhalation Q6H PRN PRN 05/01/17 05/27/17 History aerosol inhaler Sob &/Or Wheezing lisinopril 5 mg tablet 5 mg PO QDAY #90 tabs 09/15/21 Unknown Rx Allergy/AdvReac Type Severity Reaction Status Date / Time No Known Allergies Allergy Verified 06/28/24 18:28 Family History Father , 80+ of CVA CVA (cerebral vascular accident) Mother , 69 Breast Cancer Breast cancer Sister , 60+ Cancer Brother Sudden cardiac Drug abuse Social History Smoking Status: Never smoker alcohol intake: never ROS ROS ED Constitutional Constitutional ED: Denies chills, fever(s), subjective or sweats Eyes Eyes: Denies blurry vision, change in vision or diplopia ENT ENT ED: Denies ear pain, rhinorrhea or sore throat Cardiovascular Cardiovascular: Denies chest pain, orthopnea, palpitations or paroxysmal nocturnal dyspnea Respiratory/Chest Respiratory/Chest: Denies cough, dyspnea, dyspnea on exertion, orthopnea or paroxysmal nocturnal dyspnea Gastrointestinal Gastrointestinal: Denies abdominal pain, diarrhea, nausea or vomiting Musculoskeletal Musculoskeletal: Denies arthralgias or myalgias Integumentary Denies rash Neurologic Neurologic: Denies headache(s), paresthesias or weakness Hematologic/Lymphatic Hematologic/Lymphatic: Reports systems reviewed and no addt'l complaints, except as documented EXAM Physical Exam Const Vital Signs: 06/28/24 18:28 06/28/24 20:28 06/28/24 20:54 Temperature 97.8 F Temperature Source Temporal Pulse Rate 91 78 Pulse Rate [Lying] 65 Pulse Rate [Sitting (for 1 minute prior to obtaining)] 63 Pulse Rate [Standing (for 1 minute prior to obtaining)] 76 Respiratory Rate 16 16 Blood Pressure 137/78 H 114/62 Blood Pressure [Lying] 148/76 H Blood Pressure [Sitting (for 1 minute prior to obtaining)] 154/72 H Blood Pressure [Standing (for 1 minute prior to obtaining)] 139/81 H Blood Pressure Mean 97 79 Blood Pressure Mean [Lying] 100 Blood Pressure Mean [Sitting (for 1 minute prior to obtaining)] 99 Blood Pressure Mean [Standing (for 1 minute prior to obtaining)] 100 Pulse Ox 95 97 Oxygen Delivery Method Room Air Positive well nourished and well developed Constitutional Narrative: Blood pressure slightly elevated. BMI is elevated. General Appearance ED: well developed and NAD; Negative for cyanotic, diaphoretic or pallor HEENT Reports moist mucous membranes HEENT Narrative: Ears are normal to her external auditory canal is remarkable send amount of cerumen on the right side however the external auditory canal is not occluded. There is significant narrowing of the auditory canal with cerumen on the left side. The portion of the tympanic membrane that is visible on the left is suggestive of serous otitis media. There is no decreased hearing right or left. Nares patent. Uvula midline. No deviation tongue or protrusion. Mucosas moist. Eyes PERRL and EOMs intact bilaterally General Eye ED: Negative for pale conjunctiva or scleral icterus Neck no lymphadenopathy, supple and no JVD Resp normal respiratory effort Cardio regular rate and regular rhythm Extremity Negative for normal to inspection Extremity Narrative: Patient has thickening of his nails left hand greater than right. This is a chronic issue. Neuro oriented x3, CN's II-XII intact bilaterally and no sensory deficits noted Neuro Narrative: There is no dysmetria. Romberg with eyes open and close is negative. Gait was observed and is normal. Able to walk on heels and toes. Tandem gait is normal. Sensorium / Orientation: alert Motor Exam: strength 5/5 throughout Psych mental status grossly normal Skin no rashes or lesions noted, no wounds and skin turgor normal General Skin Exam: Negative for jaundice or pallor [facility] Treatment and Re-Evaluation :: Ears were Debrox and irrigated by nursing staff. Left ear has minimal residual wax noted. There is 75% removal of the right side. Patient's symptoms have resolved. Orthostatics were negative. Discharge Plan Triage Chief Complaint: Ear Problem ED Provider: Danis Love Dx/Rx/DC Orders Clinical Impression: Other peripheral vertigo, right ear, Cardiomyopathy, Hyperlipidemia, Hypertension, Excessive cerumen in both ear canals Instructions: ED Vertigo, Unspecified Prescriptions: No Action pravastatin 80 MG tablet 80 mg PO QHS Patient Comments: TAKE 1 TABLET BY MOUTH AT BEDTIME ergocalciferol (vitamin D2) 50,000 UNIT capsule 50,000 unit PO Q7D meclizine 25 MG tablet 25 mg PO TID PRN PRN (Reason: Vertigo) Qty: 20 0RF albuterol sulfate 1 INHALER inhaler 1 - 2 puff Inhalation Q6H PRN PRN (Reason: Sob &/Or Wheezing) lisinopril 5 mg tablet 5 mg PO QDAY Qty: 90 3RF Primary Care Provider: Mak Tejada Referrals: Mak Tejada MD [Primary Care Provider] - As Needed Print Language: Austrian Disposition Disposition: Home, Self Care
[2024-06-28] MEDS: Carbamide Peroxide 15 ML Bottle 5 DRP OTIC (19:09)
[2024-06-28 20:28] VITALS: BP 114/62; PULSE 78; RESP 16; O2SAT 97
[2024-06-28 20:54] VITALS: BP 139/81; BP 148/76; BP 154/72; PULSE 63; PULSE 65; PULSE 76; BMI 32.6
--- NOTE | 2024-06-28 22:13 | ED.RN ---
At approximately 2200 patient's was standing in the hallway asking any nurse that walks by for discharge instructions and was becoming increasingly agitated, as well as the patient. Pt was not up for discharge at this time. When giving pt discharge instructions, pt stated I am not waiting for you to take my vitals. Vitals documented as refused in disposition by this RN for this reason.
== END 2024-06-28 22:17 | disposition home or self-care (01) ==
PROVIDERS: Emergency Provider Emergency Medicine; PCP Family Medicine; Referring Provider Emergency Medicine; Visit Provider Emergency Medicine
DX: H61.23 Impacted cerumen, bilateral (principal); I42.9 Cardiomyopathy, unspecified; I10 Essential (primary) hypertension; H81.391 Other peripheral vertigo, right ear; Z79.899 Other long term (current) drug therapy; E78.00 Pure hypercholesterolemia, unspecified
CPT/HCPCS: 69209; 99283

== ENCOUNTER 2024-11-13 17:40 | Emergency (ER) | payer MEDICARE, SELFPAY ==
[2024-11-13 17:40] VITALS: BP 147/93; PULSE 112; RESP 16; TEMP 36.6; O2SAT 98; BMI 29.0
--- NOTE | 2024-11-13 17:56 | EKG12_ITS ---
Test Reason : Blood Pressure : */* mmHG Vent. Rate : 95 BPM Atrial Rate : 95 BPM P-R Int : 206 ms QRS Dur : 74 ms QT Int : 354 ms P-R-T Axes : 43 26 49 degrees QTcB Int : 444 ms Normal sinus rhythm Nonspecific ST abnormality Abnormal ECG Confirmed by MAYITO CRUZ, TIARA ([id number]), manager editorial SHELDON ORO ([id number]) on 11/14/2024 1:28:37 PM Referred By: STEWART Confirmed By: TIARA EDMOND MD
--- NOTE | 2024-11-13 17:56 | EX.ED.DYSGE1 ---
HPI History of Present Illness Chief Complaint: General Illness Narrative Narrative: Patient is a 69-year-old male with past medical history of hypertension, hyperlipidemia, cardiomyopathy who presented to the emergency department with a chief complaint of not feeling normal. He states that the last time he felt this way he had to have his ears cleaned out. He states that he was lying on the couch and he went to sit up and he felt lightheaded, got sweaty and felt not his normal self prompting him to come here for further evaluation management. He states that earlier today he felt well overall. Patient denies recent travel history denies any history of blood clots. [facility] Medical History (Updated 11/13/24 @ 21:[address] Ebenezer Winchester, ) Hypertension Dizziness Home Medications ?Medication ?Instructions ?Recorded ?Last Taken ?Type ergocalciferol (vitamin D2) 1,250 50,000 unit PO Q7D 08/13/15 05/27/17 History mcg (50,000 unit) capsule pravastatin 80 mg tablet 80 mg PO QHS 08/13/15 05/27/17 History meclizine 25 mg tablet 25 mg PO TID PRN PRN Vertigo #20 05/14/16 05/27/17 Rx tabs albuterol sulfate 90 mcg/actuation 1 - 2 puff inhalation Q6H PRN PRN 05/01/17 05/27/17 History aerosol inhaler Sob &/Or Wheezing lisinopril 5 mg tablet 5 mg PO QDAY #90 tabs 09/15/21 Unknown Rx Allergy/AdvReac Type Severity Reaction Status Date / Time No Known Allergies Allergy Verified 11/13/24 17:41 Family History Father , 80+ of CVA CVA (cerebral vascular accident) Mother , 69 Breast Cancer Breast cancer Sister , 60+ Cancer Brother Sudden cardiac Drug abuse Social History Smoking Status: Never smoker alcohol intake: never ROS ROS ED ROS Narrative Constitutional: Complaint of lightheadedness as noted above as well as sweating denies any fevers or chills denies recent sick contact Eyes: Denies double vision Cardiovascular: Denies chest pain or palpitations Respiratory: Denies coughing wheezing shortness of breath Abdomen: Denies nausea vomiting diarrhea : Denies urinary symptoms Neurological: Denies any numbness, weakness, tingling Musculoskeletal: Denies back pain Skin: Denies any rashes or lesions EXAM Physical Exam Narrative Exam Narrative: General: Patient lying in bed rest comfortably did not appear to be in acute distress Head: Atraumatic, normocephalic Eyes: PERRL bilaterally, EOMI bilaterally, no conjunctival injection noted, TMs visualized bilaterally no evidence of cerumen impaction. Neck: Soft, supple, trachea midline Cardiovascular: Patient tachycardic with a regular rhythm Respiratory: Clear to auscultation bilaterally Abdomen: Soft, nondistended, no tenderness to palpation Extremities: +5/5 strength noted in the bilateral upper and lower extremities, radial pulses +2/4 in the bilateral extremities, no pedal edema no exam Neurological: Patient is following commands knew that he was at [facility] year is 2024 Skin: Warm, dry, intact no rashes or lesions noted Const Vital Signs: 11/13/24 17:40 11/13/24 17:53 11/13/24 17:57 Temperature 98 F Temperature Source Oral Pulse Rate 112 H Pulse Rate [Lying] Pulse Rate [Sitting (for 1 minute prior to obtaining)] Pulse Rate [Standing (for 1 minute prior to obtaining)] Respiratory Rate 16 Respiratory Effort Normal Non-Labored Respiratory Pattern Normal Blood Pressure 147/93 H Blood Pressure [Lying] Blood Pressure [Sitting (for 1 minute prior to obtaining)] Blood Pressure [Standing (for 1 minute prior to obtaining)] Blood Pressure Mean 111 Blood Pressure Mean [Lying] Blood Pressure Mean [Sitting (for 1 minute prior to obtaining)] Blood Pressure Mean [Standing (for 1 minute prior to obtaining)] Pulse Ox 98 Oxygen Delivery Method Room Air Room Air 11/13/24 18:09 11/13/24 19:40 Temperature Temperature Source Pulse Rate 74 Pulse Rate [Lying] 94 Pulse Rate [Sitting (for 1 minute prior to obtaining)] 98 Pulse Rate [Standing (for 1 minute prior to obtaining)] 103 H Respiratory Rate 19 H Respiratory Effort Respiratory Pattern Blood Pressure 148/92 H Blood Pressure [Lying] 130/81 H Blood Pressure [Sitting (for 1 minute prior to obtaining)] 140/82 H Blood Pressure [Standing (for 1 minute prior to obtaining)] 140/82 H Blood Pressure Mean 110 Blood Pressure Mean [Lying] 97 Blood Pressure Mean [Sitting (for 1 minute prior to obtaining)] 101 Blood Pressure Mean [Standing (for 1 minute prior to obtaining)] 101 Pulse Ox 94 Oxygen Delivery Method Room Air MDM MDM MDM Narrative Medical decision making narrative: Patient is a 69-year-old male who presents to the emergency department with a chief complaint of not feeling his normal self and concern for cerumen impaction. On the differential diagnose includes but not been to cerumen impaction, ACS, pneumonia, pneumothorax, PE although have low suspicion for this as he has no history no recent travel no risk factors for this.. Once workup is obtained and reviewed he will be reevaluated. Orthostatic vital signs will be obtained he will be given IV fluids. Patient CBC reviewed and showed no evidence leukocytosis white blood count normal at 9.2, platelet count was noted to be normal at 206, hemoglobin stable 13.1. Patient sodium normal 139, potassium low at 3.9, creatinine was 0.97. Patient's troponin was 13 with a delta troponin of 14. Patient's EKG reviewed showed sinus rhythm with a rate of 95 bpm with a WI interval of 206. This was compared to previous EKG from June 01, 2017 and is largely unchanged. Patient is EKG patient's chest x-ray reviewed by myself and by radiology which showed chronic scarring in bilateral upper lungs no acute cardiopulmonary processes. Orthostatic vital signs negative On reevaluation the patient at 9:10 PM he is feeling significantly improved and would like to go home at this point time. He is advised to follow-up his doctor in outpatient setting and return with worsening symptoms or other concerns. He is agreeable to plan all course concerns answered is discharged home in stable condition Lab Data Labs: Laboratory Results - last 24 hr 11/13/24 11/13/24 18:05 19:59 WBC 9.2 RBC 4.60 Hgb 13.1 Hct 40.9 MCV 88.9 MCH 28.5 MCHC 32.0 RDW Std Deviation 48.6 H RDW Coeff of Kelby 14.9 H Plt Count 206 MPV 12.5 H Immature Gran % (Auto) 0.400 Neut % (Auto) 55.0 Lymph % (Auto) 31.3 Cannon % (Auto) 9.5 Eos % (Auto) 3.1 Baso % (Auto) 0.7 Absolute Neuts (auto) 5.1 Absolute Lymphs (auto) 2.87 Nucleated RBC % 0 Sodium 139 Potassium 3.9 Chloride 104 Carbon Dioxide 24.3 Anion Gap 11 BUN 12 Creatinine 0.97 Estim Creat Clear Calc 75.87 Est GFR (MDRD) Non-Af 85 BUN/Creatinine Ratio 12.8 Glucose 138 H Calcium 8.9 Troponin T High Sens 13 Troponin T Hi Sens 2 Hr 14 Radiography Diagnostic Testing: Clinical Impression(s) from Imaging Studies Chest X-Ray 11/13/24 18:20 IMPRESSION: Bibasilar atelectasis. Chronic scarring of bilateral upper lungs. No acute cardiopulmonary abnormality. Reading Location: [id number] Discharge Plan Triage Chief Complaint: General Illness ED Provider: Ebenezer Winchester Dx/Rx/DC Orders Clinical Impression: Encounter for medical screening examination, Light-headed, History of hypertension Prescriptions: No Action pravastatin 80 MG tablet 80 mg PO QHS Patient Comments: TAKE 1 TABLET BY MOUTH AT BEDTIME ergocalciferol (vitamin D2) 50,000 UNIT capsule 50,000 unit PO Q7D meclizine 25 MG tablet 25 mg PO TID PRN PRN (Reason: Vertigo) Qty: 20 0RF albuterol sulfate 1 INHALER inhaler 1 - 2 puff Inhalation Q6H PRN PRN (Reason: Sob &/Or Wheezing) lisinopril 5 mg tablet 5 mg PO QDAY Qty: 90 3RF Primary Care Provider: Mak Tejada Referrals: Mak Tejada MD [Primary Care Provider, Family Practice] Activity Restrictions/Additional Instructions: Follow-up with your doctor in outpatient setting. Return with worsening symptoms or any other concerns. Your blood work did not show any acute findings today your chest x-ray did not show any acute findings. Print Language: Irish Disposition Disposition: Home, Self Care
[2024-11-13] MEDS: 0.9% Normal Saline (1000mL) 1,000 ML 999 ML IV (18:07)
[2024-11-13 18:09] VITALS: BP 130/81; BP 140/82; PULSE 103; PULSE 94; PULSE 98
[2024-11-13 18:19] LABS: Hematocrit 40.9 % (40-54); Hemoglobin 13.1 g/dL (13.0-16.5); Immature Granulocytes Count 0.040 X10^3/uL (0.0-0.0); Mean Corp Hgb Conc 32.0 g/dL (32-36); Mean Corpuscular Volume 88.9 fL (80-94); Mean Platelet Vol. 12.5 fl (6.2-12.0); NRBC Flagged by Analyzer 0 % (0-5); Platelet Count 206 K/mm3 (150-450); RBC Distribution Width CV 14.9 % (11.6-14.6); RBC Distribution Width SD 48.6 fl (35.1-43.9); Red Blood Count 4.60 M/mm3 (4.6-6.2); White Blood Count 9.2 K/mm3 (4.4-11.0)
--- NOTE | 2024-11-13 18:20 | RAD_ITS ---
PROCEDURE: CHEST PA AND LATERAL 11/13/2024 REASON FOR EXAM: CHEST PAIN TECHNIQUE: Procedure Code: RADCXR Modality: DX Procedure: CHEST PA AND LATERAL COMPARISON: None FINDINGS: Hardware: Monitoring electrodes overlying chest wall. Heart: The heart size is normal. Mediastinum: The mediastinal contour is unremarkable. Lungs: Bibasilar atelectasis. Scarring within bilateral upper lungs. No focal consolidation. Bone: Age-related degenerative changes. S: RAD/Chest PA and Lateral IMPRESSION: Bibasilar atelectasis. Chronic scarring of bilateral upper lungs. No acute ca rdiopulmonary abnormality. Reading Location: [id number]
[2024-11-13 18:39] LABS: Anion Gap 11 (5-15); BUN 12 mg/dL (4-19); BUN/Creat Ratio 12.8 RATIO (10-20); Calcium,Total 8.9 mg/dL (7.6-11.0); Carbon Dioxide 24.3 mmol/L (21.0-32.0); Chloride 104 mmol/L (98-108); Estimated Creatinine Clearance 75.87 ml/min (50-250); Glucose 138 mg/dL (70-99); Potassium 3.9 mmol/L (3.3-5.1); Troponin T High Sensitivity 13 ng/L (<=22)
[2024-11-13 19:40] VITALS: BP 148/92; PULSE 74; RESP 19; O2SAT 94
[2024-11-13 20:23] LABS: Troponin T High Sens 2 HR 14 ng/L (<=22)
[2024-11-13 21:19] VITALS: BP 142/80; PULSE 75; RESP 22; TEMP 36.6; O2SAT 95
== END 2024-11-13 21:24 | disposition home or self-care (01) ==
PROVIDERS: Emergency Provider Emergency Medicine; PCP Family Medicine; Visit Provider Emergency Medicine
DX: R42 Dizziness and giddiness (principal); E78.5 Hyperlipidemia, unspecified; Z13.9 Encounter for screening, unspecified; I10 Essential (primary) hypertension; Z79.899 Other long term (current) drug therapy
CPT/HCPCS: 71046; 80048; 84484; 85025; 93005; 96360; 96361; 99285; A4216